=== PATIENT | female | born 1990 | race Caucasian/White ===

== ENCOUNTER 2017-10-08 17:33 | Outpatient (CLI) | payer OTHER, MEDICARE, MEDICAID | END 2017-10-08 17:34 | disposition critical access hospital (66) | LOC: EMS 17:33 | PROVIDERS: ATTEND Surgery | DX: S06.9X9A Unspecified intracranial injury with loss of consciousness of unspecified duration, initial encounter (principal); T71.193A Asphyxiation due to mechanical threat to breathing due to other causes, assault, initial encounter; M54.2 Cervicalgia; M54.9 Dorsalgia, unspecified; R10.10 Upper abdominal pain, unspecified; Y04.2XXA Assault by strike against or bumped into by another person, initial encounter; Y92.009 Unspecified place in unspecified non-institutional (private) residence as the place of occurrence of the external cause | CPT/HCPCS: A0425; A0429 ==

== ENCOUNTER 2017-10-08 18:01 | Emergency (ER) | payer OTHER, MEDICARE, MEDICAID ==
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
--- NOTE | 2017-10-08 19:12 | CT Preliminary Report ---
Exam: CT FACIAL BONES W/O IMPRESSION: 1. No acute facial fracture identified. Old nasal fracture again noted. No TMJ dislocation. [facility] SITE ID: [id number]
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
[2017-10-08 19:30] LABS: BILIRUBIN,URINE NEGATIVE (NEGATIVE); GLUCOSE, URINE (UA) NEGATIVE (NEGATIVE); KETONES,URINE (UA) TRACE mg/dL (NEGATIVE); LEUKOCYTE ESTERASE, URINE NEGATIVE (NEGATIVE); NITRITE,URINE NEGATIVE (NEGATIVE); OCCULT BLOOD,URINE NEGATIVE (NEGATIVE); PROTEIN,URINE TRACE mg/dL (NEGATIVE); UROBILINOGEN,URINE 0.2 (NORMAL) E.U./dL (NORMAL)
[2017-10-08 19:34] LABS: CLARITY,URINE CLEAR (CLEAR); HCG UR QUAL NEGATIVE
[2017-10-08 20:19] VITALS: BP 100/66
== END 2017-10-08 20:15 | disposition home or self-care (01) ==
LOC: ED 18:01
DX: S09.90XA Unspecified injury of head, initial encounter (principal); S00.83XA Contusion of other part of head, initial encounter; S20.212A Contusion of left front wall of thorax, initial encounter; S10.93XA Contusion of unspecified part of neck, initial encounter; T71.9XXA Asphyxiation due to unspecified cause, initial encounter; Y08.89XA Assault by other specified means, initial encounter; F17.200 Nicotine dependence, unspecified, uncomplicated
CPT/HCPCS: 70450; 70486; 72125; 81001; 81003; 81025; 87086; 99283; 99284

== ENCOUNTER 2017-10-31 22:02 | Outpatient (CLI) | payer MEDICARE, MEDICAID | END 2017-10-31 22:03 | disposition EMS.NT | LOC: EMS 22:02 | PROVIDERS: ATTEND Surgery | DX: R22.0 Localized swelling, mass and lump, head (principal); Y00.XXXA Assault by blunt object, initial encounter; Y92.009 Unspecified place in unspecified non-institutional (private) residence as the place of occurrence of the external cause ==

== ENCOUNTER 2018-05-18 12:29 | Outpatient (CLI) | payer MEDICARE, MEDICAID | END 2018-05-18 12:30 | disposition critical access hospital (66) | LOC: EMS 12:29 | PROVIDERS: ATTEND Surgery | DX: R07.9 Chest pain, unspecified (principal) | CPT/HCPCS: A0425; A0429 ==

== ENCOUNTER 2018-05-18 12:56 | Emergency (ER) | payer MEDICARE, MEDICAID ==
[2018-05-18 13:14] VITALS: BP 143/93
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
[2018-05-18 14:16] LABS: VBG BASE EXCESS 2.6 mmol/L (-2 - +2); VBG PCO2 49.8 mmHg (41-51); VBG PH 7.378 (7.31-7.41); VBG PO2 24.6 mmHg (25-47); VBG TOTAL CO2 30.2 mmol/L (24-29)
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
== END 2018-05-18 15:08 | disposition home or self-care (01) ==
LOC: EDUNIT# → ED 12:56
DX: R07.89 Other chest pain (principal); R03.0 Elevated blood-pressure reading, without diagnosis of hypertension; F17.200 Nicotine dependence, unspecified, uncomplicated
CPT/HCPCS: 36415; 71046; 82803; 99282; 99283

== ENCOUNTER 2022-08-03 09:00 | Outpatient (CLI) | payer MEDICARE, MEDICAID | END 2022-08-03 23:59 | disposition home or self-care (01) | LOC: LAB.S 09:00 | PROVIDERS: ATTEND Physician Assistant Medical | DX: R30.9 Painful micturition, unspecified (principal) | CPT/HCPCS: 87077; 87086; 87181 ==

== ENCOUNTER 2022-09-10 07:00 | Outpatient (CLI) | payer MEDICARE, MEDICAID ==
[2022-09-10 15:14] LABS: BASOPHILS # (AUTO) 0.1 10^3/uL (0.0-0.1); EOSINOPHILS # (AUTO) 0.1 10^3/uL (0.0-0.7); EOSINOPHILS % (AUTO) 1.4 %; HCT - HEMATOCRIT 41.2 % (37.0-47.0); HGB - HEMOGLOBIN 13.1 g/dL (12.0-16.0); LYMPHOCYTES # (AUTO) 2.1 10^3/uL (1.5-3.5); MEAN CORPUSCULAR HEMOGLOBIN 27.9 pg (27.0-31.0); MEAN CORPUSCULAR HGB CONC 31.8 g/dL (32.0-36.0); MEAN CORPUSCULAR VOLUME 87.8 fL (81.0-99.0); MEAN PLATELET VOLUME 10.6 fL (7.9-10.8); MONOCYTES # (AUTO) 0.5 10^3/uL (0.0-1.0); MONOCYTES % (AUTO) 7.7 %; NEUTROPHILS # (AUTO) 4.1 10^3/uL (1.5-6.6); NEUTROPHILS % (AUTO) 58.8 %; PLT - PLATELET COUNT 209 10^3/uL (130-450); RED BLOOD COUNT 4.69 10^6/uL (4.20-5.40); RED CELL DISTRIBUTION WIDTH 13.1 % (12.0-15.0); WHITE BLOOD COUNT 6.9 x10^3/uL (4.8-10.8)
[2022-09-10 15:28] LABS: ALBUMIN 3.9 g/dL (3.2-5.5); ALBUMIN/GLOBULIN RATIO 1.1 (1.0-2.2); ALKALINE PHOSPHATASE 48 IU/L (42-121); ALT ALANINE AMINOTRANSFERASE 25 IU/L (10-60); AST ASPARTATE AMINOTRANSFERASE 23 IU/L (10-42); BUN - BLOOD UREA NITROGEN 17 mg/dL (6-20); CALCIUM 9.1 mg/dL (8.5-10.3); CARBON DIOXIDE - CO2 28 mmol/L (21-32); CHLORIDE 103 mmol/L (101-111); CHOL/HDL RATIO 3.4 (<4.4); CHOLESTEROL 156 mg/dL; CK- CREATINE KINASE 89 IU/L (22-269); CREATININE 0.8 mg/dL (0.4-1.0); GFR - MDRD 84 (>89); GLUCOSE 92 mg/dL (70-100); HDL CHOLESTEROL 46 mg/dL; LDL CHOLESTEROL,CALCULATED 98 mg/dL; LDL/HDL RATIO 2.1 (<4.4); POTASSIUM 4.1 mmol/L (3.5-5.0); SODIUM 139 mmol/L (135-145); TOTAL PROTEIN 7.4 g/dL (6.7-8.2); TRIGLYCERIDES 60 mg/dL; VLDL CHOLESTEROL 12 mg/dL
[2022-09-10 15:38] LABS: CORTISOL 15.7 ug/dL
[2022-09-10 15:42] LABS: THYROID STIMULATING HORMONE 1.78 uIU/mL (0.34-5.60)
[2022-09-10 16:10] LABS: FOLLICLE STIMULATING HORMONE 4.45 mIU/mL
[2022-09-10 16:11] LABS: LUTEINIZING HORMONE 14.48 mIU/mL
== END 2022-09-10 07:01 | disposition home or self-care (01) ==
LOC: LAB.S 07:00
PROVIDERS: ATTEND Internal Medicine
DX: I10 Essential (primary) hypertension (principal); L70.9 Acne, unspecified; R68.89 Other general symptoms and signs; H54.7 Unspecified visual loss; R42 Dizziness and giddiness; D70.9 Neutropenia, unspecified; R53.83 Other fatigue; L68.0 Hirsutism; R45.4 Irritability and anger; R41.3 Other amnesia; N92.0 Excessive and frequent menstruation with regular cycle; M62.81 Muscle weakness (generalized); R21 Rash and other nonspecific skin eruption; R68.82 Decreased libido; Z13.6 Encounter for screening for cardiovascular disorders; R61 Generalized hyperhidrosis; R63.5 Abnormal weight gain
CPT/HCPCS: 36415; 80053; 80061; 82533; 82550; 82670; 83001; 83002; 83721; 84403; 84443; 85025

== ENCOUNTER 2023-05-05 08:00 | Outpatient (CLI) | payer MEDICARE, MEDICAID ==
[2023-05-05 20:22] LABS: BACTERIAL VAGINOSIS DNA NEGATIVE (NEGATIVE); CANDIDA GLABRATA DNA NEGATIVE (NEGATIVE); CANDIDA GROUP DNA NEGATIVE (NEGATIVE); CANDIDA KRUSEI DNA NEGATIVE (NEGATIVE); TRICHOMONAS VAGINALIS DNA NEGATIVE (NEGATIVE)
[2023-05-05 22:57] LABS: CHLAMYDIA TRACHOMATIS DNA NEGATIVE (NEGATIVE); NEISSERIA GONORRHOEAE DNA NEGATIVE (NEGATIVE)
== END 2023-05-05 23:59 | disposition home or self-care (01) ==
LOC: LAB.S 08:00
PROVIDERS: ATTEND Physician Assistant
DX: R30.0 Dysuria (principal); R30.9 Painful micturition, unspecified
CPT/HCPCS: 81514; 87086; 87491; 87591; 87661